=== PATIENT | female | born 1970 | race Caucasian/White ===

== ENCOUNTER 2017-03-10 09:04 | Outpatient (CLI) | payer OTHER ==
[2017-03-10 17:45] LABS: BASOPHILS % (AUTO) 0.6 %; EOSINOPHILS # (AUTO) 0.1 10^3/uL (0.0-0.7); EOSINOPHILS % (AUTO) 1.2 %; HCT - HEMATOCRIT 42.5 % (37.0-47.0); LYMPHOCYTES # (AUTO) 0.6 10^3/uL (1.5-3.5); LYMPHOCYTES % (AUTO) 8.9 %; MEAN CORPUSCULAR HGB CONC 32.9 g/dL (32.0-36.0); MEAN CORPUSCULAR VOLUME 94.3 fL (81.0-99.0); MEAN PLATELET VOLUME 8.5 fL (7.9-10.8); MONOCYTES # (AUTO) 0.5 10^3/uL (0.0-1.0); MONOCYTES % (AUTO) 7.7 %; NEUTROPHILS # (AUTO) 5.7 10^3/uL (1.5-6.6); NEUTROPHILS % (AUTO) 81.6 %; RED BLOOD COUNT 4.51 10^6/uL (4.20-5.40); RED CELL DISTRIBUTION WIDTH 12.5 % (12.0-15.0); UNCORRECTED WHITE BLOOD COUNT 6.9 x10^3/uL; WHITE BLOOD COUNT 6.9 x10^3/uL (4.8-10.8)
== END 2017-03-10 09:05 | disposition home or self-care (01) ==
LOC: LAB.F 09:04
PROVIDERS: ATTEND Nurse Practitioner Family
DX: R59.1 Generalized enlarged lymph nodes (principal)
CPT/HCPCS: 36415; 85025

== ENCOUNTER 2017-11-27 18:31 | Emergency (ER) | payer OTHER ==
[2017-11-27] MEDS ORDERED: MORPHINE 2 MG/ML SYRINGE IVP STA (18:55)
[2017-11-27] MEDS ORDERED: ONDANSETRON 4 MG/2 ML VIAL IVP STA (18:55)
--- NOTE | 2017-11-27 18:57 | ED Physician Documentation ---
PD HPI Fall - Stated complaint Stated Complaint: RT ARM INJURY - Chief complaint Chief Complaint: Trauma Ext - History obtained from History obtained from: Patient, Family - History of Present Illness Mechanism of injury: Slipped Fall distance: Standing position Where injury occurred: Park Timing - onset: How many hours ago (1) Injury(ies) location: Head, Neck, Right Upper Extremity (entire R UE), Right Lower Extremity (ankle) Pain level max: 8 Pain level now: 8 Quality of pain: Pain, Aching, Dull Associated symptoms: LOC (1-2 seconds, then altered for approx 30 seconds), Neck pain, Nausea / vomiting (nausea, no vomiting). No: Ear drainage, Nasal drainage, Weakness, Paresthesias, Dyspnea, Hematemesis Symptoms improve with: Rest Worsens with: Movement, Palpation Contributing factors: No: Anticoagulated, Intoxicated Similar symptoms before: Has not had sx before Recently seen: Not recently seen Review of Systems Ten Systems: 10 systems reviewed and negative Constitutional: denies: Fever, Chills Ears: denies: Ear pain Nose: denies: Rhinorrhea / runny nose, Congestion Throat: denies: Sore throat Cardiac: denies: Chest pain / pressure Respiratory: denies: Cough GI: reports: Nausea. denies: Abdominal Pain, Vomiting, Diarrhea Skin: denies: Rash Musculoskeletal: denies: Back pain Neurologic: denies: Focal weakness, Numbness PD PAST MEDICAL HISTORY - Past Medical History Past Medical History: Yes GI: Crohn's disease - Present Medications Home Medications: Ambulatory Orders Medication Instructions Recorded Confirmed Hydrocodone/Acetaminophen 1 - 2 each PO Q6H PRN #14 tablet 11/27/17 [Hydrocodon-Acetaminophen 5-325] Ondansetron Odt [Zofran] 4 mg TL Q6H PRN #10 tablet 11/27/17 - Allergies Allergies/Adverse Reactions: Allergies Allergy/AdvReac Type Severity Reaction Status Date / Time Sulfa (Sulfonamide Allergy Unknown Verified 11/27/17 18:38 Antibiotics) - Social History Does the pt smoke?: No Smoking Status: Never smoker PD ED PE NORMAL - Vitals Vital signs reviewed: Yes - General General: Alert and oriented X 3, No acute distress - HEENT HEENT: Atraumatic, PERRL, EOMI, Ears normal, Moist mucous membranes - Neck Neck: Other (mild mid c-spine TTP, no step off or deformity. ) - Cardiac Cardiac: RRR - Respiratory Respiratory: No respiratory distress, Clear bilaterally - Abdomen Abdomen: Soft, Non tender, Non distended - Back Back: No CVA TTP, No spinal TTP - Derm Derm: Warm and dry, No rash - Extremities Extremities: No deformity, Other (TTP over the humerus, radial head and forearm. no wrist tenderness. no snuffbox tenderness. NVI. Also mild TTP over the R lateral malleolus. mild swelling. o/w normal R ankle exam and foot exam. NVI) - Neuro Neuro: Alert and oriented X 3, material assistant 2-12 intact Eye Opening: Spontaneous Motor: Obeys Commands Verbal: Oriented GCS Score: 15 - Psych Psych: Normal mood, Normal affect Results - Vitals Vitals: Vital Signs - 24 hr 11/27/17 11/27/17 18:33 21:05 Temperature 36.3 C L Heart Rate 80 72 Respiratory 18 16 Rate Blood Pressure 124/54 L 137/73 H O2 Saturation 100 98 Oxygen O2 Source Room air - Rads (name of study) head CT Radiology: Prelim report reviewed, EMP read contemporaneously, See rad report ( Normal head CT. ) cervical spine CT Radiology: Prelim report reviewed, EMP read contemporaneously, See rad report ( No cervical spine fracture or malalignment. Mild disk related degenerative changes at C5-C6. ) R humerus xray Radiology: Prelim report reviewed, EMP read contemporaneously, See rad report ( Radial head fracture ) R forearm xray Radiology: Prelim report reviewed, EMP read contemporaneously, See rad report ( Radial head fracture ) R ankle xray Radiology: Prelim report reviewed, EMP read contemporaneously, See rad report ( Negative ankle radiography. ) PD MEDICAL DECISION MAKING - ED course Complexity details: reviewed results, re-evaluated patient, considered differential, d/w patient, d/w family ED course: Patient is a 47-year-old female who tripped fell and struck her head on the ground today. Brief loss of consciousness, followed by disorientation for 30 seconds or so. Negative head CT. No acute findings on cervical spine CT. Found to have a radial head fracture. Placed in a sling for comfort. Placed in a gel splint for comfort for her R ankle sprain. Will have her follow up with ortho for further care. Patient counseled regarding signs and symptoms for which I believe and urgent re-evaluation would be necessary. Patient with good understanding of and agreement to plan and is comfortable going home at this time This document was made in part using voice recognition software. While efforts are made to proofread this document, sound alike and grammatical errors may occur. - Sepsis Event Vital Signs: Vital Signs - 24 hr 11/27/17 11/27/17 18:33 21:05 Temperature 36.3 C L Heart Rate 80 72 Respiratory 18 16 Rate Blood Pressure 124/54 L 137/73 H O2 Saturation 100 98 Oxygen O2 Source Room air Departure - Departure Disposition: Home, Self Care Clinical Impression: Head injury Qualifiers: Encounter type: initial encounter Qualified Code(s): S09.90XA - Unspecified injury of head, initial encounter Radial head fracture Qualifiers: Encounter type: initial encounter Fracture type: closed Fracture alignment: nondisplaced Laterality: right Qualified Code(s): S52.124A - Nondisplaced fracture of head of right radius, initial encounter for closed fracture Ankle sprain Qualifiers: Encounter type: initial encounter Involved ligament of ankle: unspecified ligament Laterality: right Qualified Code(s): S93.401A - Sprain of unspecified ligament of right ankle, initial encounter Condition: Good Instructions: ED Sprain Ankle W X Ray, ED Fx Radial Head, ED Head Injury Closed Follow-Up: MANDO BALLESTEROS ND [Primary Care Provider] - [facility] [Provider Group] - Within 1 week Prescriptions: Hydrocodone/Acetaminophen [Hydrocodon-Acetaminophen 5-325] 1 - 2 each PO Q6H PRN #14 tablet PRN Reason: pain Ondansetron Odt [Zofran] 4 mg TL Q6H PRN #10 tablet PRN Reason: Nausea / Vomiting Comments: You do have a fracture of the right radial head. Remove the splint after 3-4 days and start to use the arm. Follow-up with orthopedics for further care. Return if you worsen. Do not drink alcohol or drive while on narcotic pain medicine. Note that many narcotic pain relievers also contain tylenol/acetaminophen. Please ensure that your total dose of acetaminophen from all sources does not exceed 3 grams (3000mg) per day. You may constipated on this medication, take a stool softener such as "Colace" twice a day while you are on it. Also recommend a [id number] laxative such as senna or MiraLAX any day that you do not have a bowel movement. If you received narcotic pain medication in the emergency department, do not drive or operate machinery for the next 24 hours. Discharge Date/Time: 11/27/17 21:15
--- NOTE | 2017-11-27 19:49 | CT Report ---
Reason: fall, head injury Procedure Date: 11/27/2017 Accession Number: [id number] / [id number] Procedure: CT - Head W/O CPT Code: FULL RESULT: EXAM: CT HEAD EXAM DATE: 11/27/2017 07:22 PM. CLINICAL HISTORY: Head injury and neck pain after fall COMPARISON: None. TECHNIQUE: Multiaxial CT images were obtained from the foramen magnum to the vertex. Reformats: Sagittal and coronal. IV contrast: None. In accordance with CT protocol optimization, one or more of the following dose reduction techniques were utilized for this exam: automated exposure control, adjustment of mA and/or KV based on patient size, or use of iterative reconstructive technique. FINDINGS: Parenchyma: No intraparenchymal hemorrhage. No evidence of mass, midline shift, or CT findings of infarction. Diaz-white differentiation is distinct. Extraaxial Spaces: Normal for age. No subdural or epidural collections identified. Ventricles: Normal in size and position. Sinuses and Orbits: Imaged paranasal sinuses, orbits, and mastoids show no significant abnormality. Bones: No evidence of fracture or calvarial defect. Other: None. IMPRESSION: Normal head CT. RADIA
--- NOTE | 2017-11-27 19:53 | CT Report ---
Reason: fall, neck pain Procedure Date: 11/27/2017 Accession Number: [id number] / [id number] Procedure: CT - Cervical Spine W/O CPT Code: FULL RESULT: EXAM: CT CERVICAL SPINE WITHOUT CONTRAST DATE: 11/27/2017 07:28 PM. HISTORY: Head injury and neck pain after fall COMPARISONS: None. TECHNIQUE: Thin-section axial images were acquired of the cervical spine without contrast. Post-processing: Coronal and sagittal reformats. Other: None. In accordance with CT protocol optimization, one or more of the following dose reduction techniques were utilized for this exam: automated exposure control, adjustment of mA and/or KV based on patient size, or use of iterative reconstructive technique. FINDINGS: Alignment: No scoliosis or spondylolisthesis. Bones: No fracture or bone lesion. Interspace Levels/Facets: C1-C2: Unremarkable. C2-C3: Unremarkable. C3-C4: Unremarkable. C4-C5: Unremarkable. C5-C6: Mild degenerative bulging disk osteophyte complex with no significant foraminal stenosis. C6-C7: Unremarkable. C7-T1: Unremarkable. Musculature: Normal. No fatty atrophy. Other: The paravertebral and prevertebral soft tissues are unremarkable. The lung apices are clear. IMPRESSION: 1. No cervical spine fracture or malalignment. 2. Mild disk related degenerative changes at C5-C6. RADIA
--- NOTE | 2017-11-27 20:16 | XRAY Report ---
Reason: fall, R arm pain Procedure Date: 11/27/2017 Accession Number: [id number] / [id number] Procedure: XR - Humerus RT CPT Code: FULL RESULT: EXAM: RIGHT HUMERUS RADIOGRAPHY EXAM DATE: 11/27/2017 07:45 PM. CLINICAL HISTORY: Fall with arm pain COMPARISON: None. TECHNIQUE: 2 views. FINDINGS: Bones: There is lucency of the radial head consistent with a nondisplaced radial head fracture. No other fractures are seen. Joints: Normal. No effusions or subluxations in the visualized shoulder or elbow joints. Soft Tissues: Likely elbow effusion. IMPRESSION: Radial head fracture [facility]IA
--- NOTE | 2017-11-27 20:17 | XRAY Report ---
Reason: fall, R arm pain Procedure Date: 11/27/2017 Accession Number: [id number] / [id number] Procedure: XR - Forearm RT CPT Code: FULL RESULT: EXAM: RIGHT FOREARM RADIOGRAPHY EXAM DATE: 11/27/2017 07:45 PM. CLINICAL HISTORY: Fall with pain COMPARISON: None. TECHNIQUE: 2 views. FINDINGS: Bones: There is a nondisplaced fracture of the radial head. Joints: There is an elbow effusion. Soft Tissues: No soft tissue swelling. IMPRESSION: Radial head fracture RADIA
--- NOTE | 2017-11-27 20:18 | XRAY Report ---
Reason: fall, pain to extremity Procedure Date: 11/27/2017 Accession Number: [id number] / [id number] Procedure: XR - Ankle 3 View RT CPT Code: FULL RESULT: EXAM: RIGHT ANKLE RADIOGRAPHY EXAM DATE: 11/27/2017 07:45 PM. CLINICAL HISTORY: Ankle pain after fall COMPARISON: None. TECHNIQUE: 3 views. FINDINGS: Bones: No fractures or bone lesions. Joints: No effusion. No subluxations. The ankle mortise is normally aligned. Soft Tissues: No soft tissue swelling. IMPRESSION: Negative ankle radiography. RADIA
[2017-11-27] MEDS ORDERED: HYDROcod/ACETAM 5/325 MG TABLET PO STA (20:47)
[2017-11-27] MEDS ORDERED: ONDANSETRON ODT 4 MG Prepack 2 TL PRN (20:50)
[2017-11-27] MEDS ORDERED: HYDROcod/ACET 5/325 Prepack 4 PO STA (20:54)
[2017-11-27 21:05] VITALS: BP 137/73
[2017-11-27] MEDS ORDERED: ONDANSETRON ODT 4 MG TABLET TL STA (21:09)
== END 2017-11-27 21:15 | disposition home or self-care (01) ==
LOC: ED 18:31
DX: S06.9X1A Unspecified intracranial injury with loss of consciousness of 30 minutes or less, initial encounter (principal); S52.124A Nondisplaced fracture of head of right radius, initial encounter for closed fracture; S93.401A Sprain of unspecified ligament of right ankle, initial encounter; M54.2 Cervicalgia; W01.10XA Fall on same level from slipping, tripping and stumbling with subsequent striking against unspecified object, initial encounter; Y93.89 Activity, other specified; Y92.830 Public park as the place of occurrence of the external cause
CPT/HCPCS: 70450; 72125; 73060; 73090; 73610; 96374; 99283; 99284; A9270; J2270; Q0162